=== PATIENT | male | born 1975 | race Caucasian/White ===

== ENCOUNTER 2021-10-14 16:46 | Emergency (ER) | payer OTHER, BC ==
[~2021-10-14] VITALS: Ht 172.7 cm; Wt 84.1 kg
[2021-10-14 17:48] LABS: COLLECTION METHOD CLEAN CATCH
[2021-10-14 17:53] LABS: BASO % 0.6 % (0.0-2.0); EOS # 0.1 K/mm3 (0.0-0.7); EOS % 0.9 % (0.0-4.0); GRAN # 4.3 K/mm3 (1.4-6.5); GRAN % 65.2 % (42.2-75.2); LYMPH # 1.6 K/mm3 (1.2-3.4); LYMPH % 23.9 % (20.0-51.0); MEAN CELL VOLUME 92 fl (80.0-100.0); MEAN CORPUSCULAR HEMOGLOBIN 30 pg (27-31); MEAN CORPUSCULAR HGB CONC 33 g/dl (33.0-37.0); MEAN PLATELET VOLUME 10.4 fl (7.4-10.4); MONO # 0.6 K/mm3 (0.1-0.6); MONO % 8.9 % (1.7-9.3); PLATELET COUNT 232 K/mm3 (130-400); RED BLOOD COUNT 5.34 M/mm3 (4.20-5.60); REDCELL DISTRIBUTION WIDTH-CV 12.8 % (11.5-14.5)
[2021-10-14 17:55] LABS: PH 7 (5-8); SQUAMOUS EPITHELIAL None Seen /hpf (0-10); URINE APPEARANCE Clear (CLEAR/HAZY); URINE BACTERIA None Seen /hpf (NONE SEEN); URINE BILIRUBIN Negative (NEGATIVE); URINE BLOOD Negative (NEGATIVE); URINE COLOR Colorless (YELLOW); URINE GLUCOSE Negative (NEGATIVE); URINE KETONE Negative (NEGATIVE); URINE LEUKOCYTE ESTERASE Negative (NEGATIVE); URINE NITRATE Negative (NEGATIVE); URINE PROTEIN(semi-quant) Negative (NEGATIVE); URINE RBC 0-2 /hpf (0-2); URINE UROBILINOGEN Negative (NEGATIVE)
[2021-10-14 18:10] LABS: C-REACTIVE PROTEIN 0.14 mg/dL (0.00-0.50); CALCIUM 9.2 mg/dL (8.4-10.2); CREATININE, serum 1.06 mg/dL (0.72-1.25); POTASSIUM 3.9 mmol/L (3.5-4.5)
[2021-10-14 18:22] LABS: ERYTHROCYTE SEDIMENTATION RATE 2 mm/hr (0-15)
[2021-10-14 23:15] VITALS: BP 135/103; PULSE 68; TEMP 97.9
[2021-10-18] MEDS ORDERED: CLARITIN 1010 MG/TAB PO (09:43)
== END 2021-10-14 23:30 | disposition short-term general hospital (02) ==
LOC: COL.ER 16:46
PROVIDERS: Emergency Medicine
DX: R29.818 Other symptoms and signs involving the nervous system (principal); R20.2 Paresthesia of skin; Z20.822 Contact with and (suspected) exposure to COVID-19

== ENCOUNTER 2021-10-20 13:25 | Outpatient (RCR) | payer OTHER, BC ==
[2021-10-18 08:40] VITALS: BP 140/91; PULSE 60; TEMP 98.3
[2021-10-19 08:26] VITALS: BP 130/75; PULSE 81; TEMP 97.9
[~2021-10-20] VITALS: Ht 172.7 cm; Wt 84.0 kg
[~2021-10-20 13:25] MED LIST: CLARITIN 1010 MG/TAB PO
[2021-10-20 13:36] VITALS: BP 129/92; PULSE 73; TEMP 97.1
== END 2021-10-21 ==
LOC: EUO
DX: G04.91 Myelitis, unspecified (principal)
CPT/HCPCS: J2930; J7050